=== PATIENT | female | born 1990 | race Caucasian/White ===

== ENCOUNTER 2021-01-05 19:29 | Emergency (ER) | payer OTHER ==
[~2021-01-05] VITALS: Ht 162.6 cm; Wt 67.1 kg
[2021-01-05 19:49] VITALS: BP 132/79
--- NOTE | 2021-01-05 20:33 | NUR ---
AMBULATED TO BED 11 WITH EVEN AND STEADY GAIT
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
[2021-01-05] MEDS ORDERED: KETOROLAC 60 MG/2 ML VIAL IM ONE (22:05)
--- NOTE | 2021-01-05 22:14 | NUR ---
Dr. Londono examining patient.
[2021-01-05] MEDS ORDERED: ACET-8386 PO (22:43)
[2021-01-05] MEDS ORDERED: IBUP-2213 PO (22:43)
[2021-01-05 22:53] VITALS: BP 132/79
--- NOTE | 2021-01-05 22:53 | NUR ---
Patient discharged with v/s stable. Written and verbal after care instructions given and explained. Patient alert, oriented and verbalized understanding of instructions. Ambulatory with steady gait. All questions addressed prior to discharge. ID band removed. Patient advised to follow up with PMD. Rx of HYDROCODONE/ACETAMINOPHEN AND IBUPROFEN given. Patient educated on indication of medication including possible reaction and side effects. Opportunity to ask questions provided and answered.
== END 2021-01-05 22:53 | disposition home or self-care (01) ==
LOC: MED 19:29
DX: S13.4XXA Sprain of ligaments of cervical spine, initial encounter (principal); R07.89 Other chest pain; V98.8XXA Other specified transport accidents, initial encounter; Y93.89 Activity, other specified; Y92.89 Other specified places as the place of occurrence of the external cause; Y99.8 Other external cause status
CPT/HCPCS: 93005; 96372; 99283; J1885